=== PATIENT | female | born 1980 | race Caucasian/White ===

== ENCOUNTER 2022-02-04 03:07 | Outpatient (CLI) | payer SELFPAY ==
--- NOTE | 2022-02-04 10:00 | NS.NUTBLAN_ITS ---
Ruth was referred for nutritional counseling to address disordered eating/ eating disorder. PMH: ADHD, obesity, depression, anxiety. Meds: Vyvance, buspirone, citalopram, well butrin. Ruth describes that she had a traumatic event as a child that developed into fear of vomiting and disordered eating. She reports only being able to eat certain safe foods such as pizza, cereal, lactaid milk, monster drinks, bread, cheese, sweet tea, OJ, some fruits such as clementines, tacos and beans and rice. She also reports that she has steps or rituals that need to occur before she will eat. She has never worried about her weight or body image. In past she had IBS symptoms, celiac ruled out. Works at [employer] on weekdays and Sat/Sun. She typically sleeps 9 hours per night. Her weight is steady around 260, 5'8, BMI: 40. She reports she has never been small and gained weight on various psych meds in the past. Food Record: typically eats a big dinner and binges. Will eat entire pizza. cooks every night but she will not eat what he cooks. She reports sensory overload with typical healthy foods such as as complex carbs, lean meats, fish and vegetables. She is not worried about weight loss however, she wants to learn how to incorporate more healthful foods in her diet. She realizes that she is not meeting nutrient requirements for health. 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 In, her case, it has lead to binge eating at night that will lead to weight gain and comorbidities related to obesity. Ruth will not eat any meals, foods that require preparation or clean up. We decided to meet weekly and work on small steps to readjust/diversify her meal intake. Goal for this week is for Ruth to drink a protein shake for breakfast and lunch. This will help her avoid becoming overly hungry and binge eating at night. Follow up scheduled 02/12 at 10 am.
== END 2022-02-04 03:08 | disposition home or self-care (01) ==
PROVIDERS: PCP Nurse Practitioner Family; Visit Provider Dietitian, Registered
DX: E66.8 Other obesity; Z68.41 Body mass index [BMI] 40.0-44.9, adult; F50.82 Avoidant/restrictive food intake disorder; F50.81 Binge eating disorder; Z71.3 Dietary counseling and surveillance
CPT/HCPCS: 97802

== ENCOUNTER 2022-02-12 02:32 | Outpatient (CLI) | payer OTHER, SELFPAY | END 2022-02-12 02:33 | disposition home or self-care (01) | PROVIDERS: PCP Nurse Practitioner Family; Visit Provider Dietitian, Registered ==

== ENCOUNTER 2022-02-15 00:57 | Outpatient (CLI) | payer OTHER, SELFPAY ==
--- NOTE | 2022-02-15 11:00 | NS.NUTBLAN_ITS ---
Ruth returns for nutritional counseling for eating disorder (ARFID) with ADD. She reports that she has started to drink a protein shake at breakfast and has added some snacks during day such as string cheese and fruit. She typically eats pizza for dinner. She has noticed that she is less likely to binge at night when she eats more during day. She is happy with her progress and reports feeling like she has more energy during day and not as extremely hungry when she comes home. Session today focused on importance of making small realistic steps to help her meet her nutrient needs. Recommend daily protein shake and snacks mid day be goal for next 4 weeks. Ruth states that since starting her last medication for ADD, she is less overwhelmed with preparing meals/clean up. Once eating during day becomes more routine, she will focus on adding more variety to dinner meal. Encouraged Ruth to continue to research how ARFID (Avoidant restrictive food intake disorde) can affect life and food choices and how small changes are important in overall goal for meeting nutrient needs for optimal living. No follow up planned at this time.
== END 2022-02-15 00:58 | disposition home or self-care (01) ==
LOC: DS 00:57
PROVIDERS: PCP Nurse Practitioner Family; Visit Provider Dietitian, Registered
DX: F50.82 Avoidant/restrictive food intake disorder (principal); Z71.3 Dietary counseling and surveillance
CPT/HCPCS: 97803

== ENCOUNTER 2023-04-09 10:33 | Emergency (ER) | payer OTHER, SELFPAY ==
[2023-04-09 10:39] VITALS: BP 127/83; PULSE 97; RESP 18; TEMP 37.2; O2SAT 100
--- NOTE | 2023-04-09 10:54 | ED.GENADUL_ITS ---
Discharge Plan Disposition Patient Disposition: Home Condition: Stable Discharge Details Clinical Impression: Francisco's palsy Primary Care Provider: Kaylyn Head ED Provider: Shira Randall Home Meds and New Rx's Prescriptions: New prednisone 20 mg tablet 60 mg PO DAILY 7 Days Qty: 21 0RF Refresh Lacri-Lube 56.8-42.5 % ointment 1 applic ophthalmic (eye) QHS PRN (Reason: dry eye(s)) Qty: 7 0RF Rx Instructions: Apply to right eye nightly and tape eye shut to avoid drying No Action bupropion HCl 150 mg Tablet Sustained-Release 12 Hr 150 mg PO DAILY citalopram 40 mg Tablet 40 mg PO DAILY sumatriptan succinate [Imitrex] 50 mg Tablet 50 mg PO DIRECTED PRN buspirone 15 mg Tablet 15 mg PO BID atomoxetine 40 mg Capsule 40 mg PO DAILY Discharge Instructions Instructions: Francisco Palsy (ED) Additional Instructions: CT is within normal limits. No evidence for stroke. Please follow up with Neurology within 1 week. Use the eye ointment nightly and patch your eye closed to avoid drying of your eye. Take the prednisone 3 tablets a day for the next 7 days. Follow up with primary care provider in 3-5 days. Return to ED sooner if any worsening or concerns. Increase oral fluids. Please take Tylenol or Ibuprofen with food every 4-6 hours as needed for pain and swelling. Stand Alone Forms: Work Release Referrals: Kaylyn Head [Primary Care Provider] - 3 days Orquidea Martinez MD [ [facility] STAFF PHYSICIAN] - 5 days Discharge Data Discharge Date/Time-TO BE ENTERED AT DEPARTURE: 04/09/23 13:23 Medical Decision Making 42-year-old female presents to the ER with chief complaint of right-sided facial drooping which began this morning. Patient reports that last week she noted some tingling of her right cheek which was intermittent and feeling more clumsy. She also noted a headache which was frontal band like last week which she took some Imitrex for that it was not relieved with Imitrex. 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 She denies headache currently. She also mentions some recent heavy lifting. Work-up ordered including CBC CMP, urinalysis , CTA brain and neck. Differential diagnosis includes but not limited to CVA, Francisco's Palsy, TIA, Lyme Labs noted below and are largely WNL. CTA within normal limits. Suspect Francisco's palsy. We will give prednisone 60 mg p.o. now and daily for the next 7 days. Also prescribe Lacri-Lube eye ointment and instruct staff electrical engineer to place a patch on the eye. Lyme panel pending at this time. Discussed home care with patient and follow-up she verbalized understanding. Discussed strict return instructions. This text was generated using Cod[employer] system, please disregard any oddities of phrase or misspellings. Medical Records Medical records reviewed: Yes I reviewed the patient's medical records. Imaging Data Radiologic Study: Imaging: CT Scan Radiologist's impression: IMPRESSION: 1. Patent carotid arteries in the neck. No hemodynamically significant stenosis. 2. Patent vertebral arteries. 3. Patent intracranial arteries. 4. No evidence of intracranial hemorrhage. No ring enhancing lesions in the brain. No abnormal meningeal enhancement evident. Lab Data Lab results reviewed: Yes I reviewed the patient's lab results. Labs: Laboratory Tests Range/Units 04/09/23 04/09/23 04/09/23 11:00 11:00 11:07 WBC (4.4-10.8) 10^3/uL 6.61 RBC (3.93-5.22) 10^6/uL 5.15 Hgb (11.2-15.7) g/dL 14.3 Hct (36.0-46.0) % 42.2 MCV (80-95) fL 82 MCH (27.0-33.0) pg 27.8 MCHC (32.0-36.0) % 33.9 RDW (11.7-14.6) % 12.8 Plt Count (130-400) 10^3/uL 394 MPV (8.0-11.0) fL 8.2 Immature Gran % 0.2 Neutrophils % 58.0 Lymphocytes % 32.2 Monocytes % 6.1 Eosinophils % 2.6 Basophils % 0.9 Nucleated RBC % (0.0-0.3) % 0.0 Absolute Neutrophils (1.2-6.7) 10^3/uL 3.84 Absolute Lymphocytes (1.2-3.4) 10^3/uL 2.13 Absolute Monocytes (0.1-0.8) 10^3/uL 0.40 Absolute Eosinophils (0.0-0.7) 10^3/uL 0.17 Absolute Basophils (0.0-0.2) 10^3/uL 0.06 Sodium (136-145) mmol/L 139 Potassium (3.5-5.1) mmol/L 3.6 Chloride (98-107) mmol/L 105 Carbon Dioxide (21.0-32.0) mmol/L 26.5 Anion Gap (3-11) mmol/L 7.5 BUN (7-18) mg/dL 9 Creatinine (0.55-1.02) mg/dL 0.8 Est GFR (CKD-EPI 2020) (mL/min/1.73m2) 95.46 Glucose (74-106) mg/dL 105 Calcium (8.5-10.1) mg/dL 8.3 L Magnesium (1.8-2.4) mg/dL 2.0 Total Bilirubin (0.2-1.0) mg/dL 0.3 AST (15-37) U/L 21 ALT (14-59) U/L 34 Alkaline Phosphatase (46-116) U/L 109 Total Protein (6.4-8.2) g/dL 7.4 Albumin (3.4-5.0) g/dL 3.7 Urine Color (Yellow) Yellow Urine Clarity (Clear) Clear Urine pH (5-8) 7.0 Ur Specific [place] (1.005-1.025) 1.015 Urine Protein (Negative) mg/dL Negative Urine Ketones (Negative) mg/dL Negative Urine Blood (Negative) Negative Urine Nitrite (Negative) Negative Urine Bilirubin (Negative) Negative Urine Urobilinogen (Up to 0.2) mg/dL 0.2 Ur Leukocyte Esterase (Negative) Negative Urine Glucose (Negative) mg/dL Negative HPI General Mode of arrival: ambulatory . Date/Time Provider Initiated Documentation: 04/09/23 10:38 . Limitations to Documentation: no limitations . Information obtained by: patient, RN notes reviewed and old records reviewed . HPI Narrative: 42-year-old female presents to the ER with chief complaint of right-sided facial drooping which began this morning. Patient reports that last week she noted some tingling of her right cheek which was intermittent and feeling more clumsy. She also noted a headache which was frontal band like last week which she took some Imitrex for that it was not relieved with Imitrex. The forehead is not involved she does have right-sided cheek mouth drooping meter maintenance person are equal clover aterally no pronator drift she is alert and oriented x4. She denies headache currently. She also mentions some recent heavy lifting. Related Data Home Medications Medication Instructions Recorded Confirmed atomoxetine 40 mg capsule 40 mg PO DAILY 04/09/23 04/09/23 bupropion HCl 150 mg tablet,12 hr 150 mg PO DAILY 04/09/23 04/09/23 sustained-release buspirone 15 mg tablet 15 mg PO BID 04/09/23 04/09/23 citalopram 40 mg tablet 40 mg PO DAILY 04/09/23 04/09/23 prednisone 20 mg tablet 60 mg PO DAILY 7 days #21 tabs 04/09/23 sumatriptan succinate 50 mg tablet 50 mg PO DIRECTED PRN 04/09/23 04/09/23 (Imitrex) white petrolatum-mineral oil 56.8 1 applic ophthalmic (eye) QHS PRN 04/09/23 %-42.5 % eye ointment (Refresh dry eye(s) #7 grams Lacri-Lube) Previous Rx's Medication Instructions Recorded prednisone 20 mg tablet 60 mg PO DAILY 7 days #21 tabs 04/09/23 white petrolatum-mineral oil 56.8 1 applic ophthalmic (eye) QHS PRN 04/09/23 %-42.5 % eye ointment (Refresh dry eye(s) #7 grams Lacri-Lube) Allergies Allergy/AdvReac Type Severity Reaction Status Date / Time No Known Allergies Allergy Unverified 04/09/23 10:43 General Stated Complaint: CVA/TIA BRENDA: 3 Review of Systems All systems reviewed & are unremarkable except as noted in HPI and below Neurologic Neurologic: Reports as per HPI and Reports localized weakness PFSH All Active Problems (Updated 04/09/23 @ 12:50 by Shira Randall NP) Francisco's palsy (Acute) Social History Smoking/Tobacco Use Status: Never Smoking risk assessment performed?: Yes Alcohol Intake: never Drug use: Never Substance use type: does not use Exam Narrative Exam Narrative: Constitutional: Alert and oriented x3. Appears stated age. Normal body habitus. Head: Normocephalic, no trauma. Eyes: Pupils PERRL, Red reflex noted, EOM's intact. Eyelids symmetrical without lesions, discharge, or swelling. ENT: Bilateral TM's WNL, External ear normal to inspection, no mastoid TTP, swelling, or erythema, Nasal turbinates WNL, no nasal discharge. Normal dentition, Posterior pharynx WNL, no exudate. Chest: RRR, Normal S1, S2, distal pulses intact. Resp: Lungs clear to auscultation bilaterally, no wheezes, rales, or rhonchi. Abdomen: Soft, non-distended, Normoactive bowel sounds all 4 quads. Musculoskeletal: Normal gait, 5/5 strength to all four extremities. Skin: No suspicious rashes or lesions. Capillary refill less than 2 sec. Neurologic: Alert and oriented x3, she does have right-sided facial droop, forehead is spared. Die Set Up Worker are equal bilaterally equal shrug, no pronator drift, dorsal flexion and extension intact bilaterally. No leg drop. Hematologic/Lymphatic: No ecchymosis, no lymphadenopathy. Course Vital Signs Vital signs: Vital Signs Temperature 37.2 C 04/09/23 10:39 Pulse 97 H 04/09/23 10:39 Respiratory Rate 18 04/09/23 10:39 Blood Pressure 127/83 04/09/23 10:39 Pulse Oximetry 100 04/09/23 10:39 Temperature 37.2 C 04/09/23 10:39 Temperature Source Temporal Artery Scan 04/09/23 10:39 Pulse 97 H 04/09/23 10:39 Respiratory Rate 18 04/09/23 10:39 Blood Pressure 127/83 04/09/23 10:39 Blood Pressure Position Sitting 04/09/23 10:39 Pulse Oximetry 100 04/09/23 10:39 Oxygen Delivery Method Room Air 04/09/23 10:39 Oxygen Flow Rate 0 04/09/23 10:39 Pain Level 0 04/09/23 10:39
[2023-04-09] MEDS: Omnipaque 350 MG/ML 500 ML BTL-Imaging package IJ (11:12)
[2023-04-09] MEDS: Normal Saline - Diluent 50 ML VIAL IJ (11:13)
[2023-04-09 11:14] VITALS: RESP 16
[2023-04-09 11:22] LABS: Abs Immature Grans 0.01 10^3/uL (0.0-0.06); Absolute Basophil Count 0.06 10^3/uL (0.0-0.2); Absolute Eosinophil Count 0.17 10^3/uL (0.0-0.7); Absolute Lymphocyte Count 2.13 10^3/uL (1.2-3.4); Absolute Neutrophil Count 3.84 10^3/uL (1.2-6.7); Basophils % 0.9; Eosinophils % 2.6; HCT 42.2 % (36.0-46.0); HGB 14.3 g/dL (11.2-15.7); Immature Grans % 0.2; Lymphocytes % 32.2; MCH 27.8 pg (27.0-33.0); MCHC 33.9 % (32.0-36.0); MCV 82 fL (80-95); MPV 8.2 fL (8.0-11.0); Monocytes % 6.1; Platelet Count 394 10^3/uL (130-400); RBC 5.15 10^6/uL (3.93-5.22); RDW 12.8 % (11.7-14.6); RDW-SD 38.2 fL; WBC 6.61 10^3/uL (4.4-10.8)
[2023-04-09 11:24] LABS: Bilirubin Negative (Negative); Blood Negative (Negative); Clarity Clear (Clear); Glucose Negative (Negative); Ketones Negative (Negative); Leukocyte Esterase Negative (Negative); Nitrite Negative (Negative); Specific Gravity 1.015 (1.005-1.025); Urobilinogen 0.2 mg/dL (Up to 0.2)
[2023-04-09 11:41] LABS: ALT 34 U/L (14-59); AST 21 U/L (15-37); Albumin 3.7 g/dL (3.4-5.0); Alkaline Phosphatase 109 U/L (46-116); Anion Gap 7.5 mmol/L (3-11); BUN 9 mg/dL (7-18); Bilirubin, Total 0.3 mg/dL (0.2-1.0); CO2 26.5 mmol/L (21.0-32.0); CREATININE 0.8 mg/dL (0.55-1.02); Calcium 8.3 mg/dL (8.5-10.1); Chloride 105 mmol/L (98-107); Estimated GFR 95.46 (mL/min/1.73m2); Glucose 105 mg/dL (74-106); Potassium 3.6 mmol/L (3.5-5.1); Sodium 139 mmol/L (136-145); Total Protein 7.4 g/dL (6.4-8.2)
--- NOTE | 2023-04-09 11:55 | DI.CT_ITS ---
Exam(s) CT BRAIN NECK CTA EXAM: CT BRAIN NECK CTA CLINICAL HISTORY: Right side facial droop. TECHNIQUE: Imaging Protocol: Axial CT angiography was performed with multi-slice acquisition and mu lti-planar and/or 3D reconstructions. CONTRAST MATERIAL: Intravenous: Omnipaque 350 Contrast volume:structured data in ml COMPARISON: No exams were available for comparison FINDINGS: CTA Neck W: Aortic arch anatomy: The aortic arch anatomy is conventional and there is no significant stenosis at the origin of the great vessels off of the aortic arch. No intimal flap evident. Anterior circulation: Both common carotid arteries ascend with normal luminal diameters. At the level the carotid bulbs and proximal internal carotid arteries there is no significant plaque without hemodynamically significant stenosis evident. Internal carotid arteries are nicely patent in the upper neck and skull base-carotid canals. Posterior circulation: Both vertebral arteries originate in conventional fashion off of the subclavian arteries and there is no obvious stenosis at the origin of the vertebral arteries. The left vertebral artery is dominant. No intraluminal thrombus nor dissection of the vertebral velasquez juan manuel. At the skull base the left vertebral artery is the main contributor to the formation of the basilar a rtery. CTA Brain W: Anterior circulation: Both internal carotid arteries are patent in the skull base-carotid canals as well as within the cave rnous sinuses. The supraclinoid aspects of the ICAs are patent. Both A1 segments are patent with the left A1 segmen t being dominant. The anterior cerebral arteries and there is no evidence of aneurysm at the level o f the anterior communicating artery. Both middle cerebral arteries are patent with no evidence of significant stenosis nor intraluminal th rombus. There also no aneurysms of these vessels. Posterior circulation: The thin basilar artery ascends in the midline. Distally it gives off superior cerebellar arteries Above this level the basilar artery terminates as patent left posterior cerebral artery. The right p osterior cerebral artery is fed by posterior communicating artery on the right side of the [place]. There is no evidence of aneurysm at the tip of the basilar artery nor elsewhere in the [id number] is. CT BRAIN: There is no evidence of intracranial hemorrhage, mass effect, or shift of midline structures. There are no extra-axial fluid collections. Ventricles are not enlarged or shifted. There are no ring enh ancing lesions in the brain and no abnormal meningeal enhancement. Incidentally noted is a retention cyst in the anterior wall the left maxillary sinus, without associa lamar fluid level. IMPRESSION: 1. Patent carotid arteries in the neck. No hemodynamically significant stenosis. 2. Patent vertebral arteries. 3. Patent intracranial arteries. 4. No evidence of intracranial hemorrhage. No ring enhancing lesions in the brain. No abnormal meni ngeal enhancement evident. If clinically indicated follow-up MRI with diffusion imaging can be performed. Called by myself to ER provider. RADIATION DOSE DELIVERED: 2,260.98mGy.cm Total DLP DATA REPOSITORY: All CT scans at this facility are submitted to the National Radiology Data Registry (NRDR) Dose Index Registry (DIR) with the [employer] (ACR). RADIATION OPTIMIZATION: All CT scans at this facility use at least one of these dose optimization te chniques: automated exposure control; mA and/or kV adjustment per patient size (includes targeted exa ms where dose is matched to clinical indication); or iterative reconstruction.
[2023-04-09] MEDS: predniSONE 20 MG TAB 60 MG PO (12:50)
--- NOTE | 2023-04-09 12:56 | NUR.NOTE ---
Nursing Note: PT needs follow up in one week withj Neurology for [place] Palsy. Marzena, ED
[2023-04-10 11:28] LABS: Lyme Ab w Rflx to Lyme Confirm Positive (Negative)
[2023-04-10 16:27] LABS: Lyme IgG Ab Positive (Negative); Lyme IgM Ab Positive (Negative)
[2023-04-15 13:49] LABS: Anaplasma phagocytophilum Negative (Negative); B. miyamotoi PCR Negative (Negative); Babesia divergens/MO-1 Negative (Negative); Babesia duncani Negative (Negative); Babesia microti Negative (Negative); Ehrlichia chaffeensis Negative (Negative); Ehrlichia ewingii/canis Negative (Negative); Ehrlichia muris eauclairensis Negative (Negative)
== END 2023-04-09 13:23 | disposition home or self-care (01) ==
PROVIDERS: Emergency Provider Registered Nurse Emergency; PCP Nurse Practitioner Family
DX: G51.0 Bell's palsy (principal)
CPT/HCPCS: 36415; 70496; 70498; 80053; 81025; 86617; 87798; 99285; 81003; 83735; 85025; 86618; 99284; J7512

== ENCOUNTER 2024-07-20 13:41 | Outpatient (REF) | payer OTHER, SELFPAY ==
[2024-07-20 19:17] LABS: Abs Immature Grans 0.02 10^3/uL (0.0-0.06); Absolute Basophil Count 0.08 10^3/uL (0.0-0.2); Absolute Eosinophil Count 0.27 10^3/uL (0.0-0.7); Absolute Lymphocyte Count 2.49 10^3/uL (1.2-3.4); Absolute Monocyte Count 0.65 10^3/uL (0.1-0.8); Absolute Neutrophil Count 4.06 10^3/uL (1.2-6.7); Basophils % 1.1 %; Eosinophils % 3.6 %; HCT 42.1 % (36.0-46.0); HGB 14.4 g/dL (11.2-15.7); Immature Grans % 0.3 %; Lymphocytes % 32.9 %; MCH 28.4 pg (27.0-33.0); MCHC 34.2 % (32.0-36.0); MCV 83 fL (80-95); MPV 8.5 fL (8.0-11.0); Monocytes % 8.6 %; Neutrophils % 53.5 %; Platelet Count 422 10^3/uL (130-400); RBC 5.07 10^6/uL (3.93-5.22); RDW 13.3 % (11.7-14.6); RDW-SD 39.6 fL; WBC 7.57 10^3/uL (4.4-10.8)
[2024-07-20 19:41] LABS: ALT 21 U/L (14-59); AST 26 U/L (15-37); Albumin 3.5 g/dL (3.4-5.0); Alkaline Phosphatase 101 U/L (46-116); Anion Gap 10.4 mmol/L (3-11); BUN 10 mg/dL (7-18); Bilirubin, Total 0.38 mg/dL (0.2-1.0); CO2 21.6 mmol/L (21.0-32.0); CREATININE 0.9 mg/dL (0.55-1.02); Calcium 8.7 mg/dL (8.5-10.1); Chloride 105 mmol/L (98-107); Estimated GFR 82.37 (mL/min/1.73m2); Glucose 72 mg/dL (74-106); Potassium 4.2 mmol/L (3.5-5.1); Sodium 137 mmol/L (136-145); TSH (W/Ref FT4) 1.93 uIU/mL (0.36-3.74); Total Protein 7.3 g/dL (6.4-8.2)
[2024-07-20 20:32] LABS: Hemoglobin A1C 5.1 % (<5.7)
== END 2024-07-20 13:42 | disposition home or self-care (01) ==
LOC: NCHCN 13:41
PROVIDERS: PCP Nurse Practitioner Family; Visit Provider Nurse Practitioner Family
DX: F32.A Depression, unspecified (principal); Z68.37 Body mass index [BMI] 37.0-37.9, adult; E66.9 Obesity, unspecified
CPT/HCPCS: 80053; 83036; 84443; 85025

== ENCOUNTER 2025-09-01 09:49 | Outpatient (REF) | payer BC, SELFPAY ==
[2025-09-01 15:30] LABS: Abs Immature Grans 0.02 10^3/uL (0.0-0.06); HCT 41.7 % (36.0-46.0); HGB 13.8 g/dL (11.2-15.7); Immature Grans % 0.3 %; MCH 26.7 pg (27.0-33.0); MCHC 33.1 % (32.0-36.0); MCV 81 fL (80-95); MPV 8.8 fL (8.0-11.0); Platelet Count 415 10^3/uL (130-400); RBC 5.16 10^6/uL (3.93-5.22); RDW 13.0 % (11.7-14.6); RDW-SD 37.9 fL; WBC 7.44 10^3/uL (4.4-10.8)
[2025-09-01 16:12] LABS: ALT 24 U/L (14-59); AST 11 U/L (15-37); Albumin 3.7 g/dL (3.4-5.0); Alkaline Phosphatase 125 U/L (46-116); Anion Gap 10.5 mmol/L (3-11); BUN 11 mg/dL (7-18); Bilirubin, Total 0.4 mg/dL (0.2-1.0); CO2 24.5 mmol/L (21.0-32.0); Calcium 8.5 mg/dL (8.5-10.1); Chloride 105 mmol/L (98-107); Cholesterol 177 mg/dL (<200); Glucose 89 mg/dL (74-106); HDL Cholesterol 33 mg/dL (>or=50); Potassium 3.9 mmol/L (3.5-5.1); Sodium 140 mmol/L (136-145); TSH (W/Ref FT4) 1.74 uIU/mL (0.36-3.74); Total Protein 7.0 g/dL (6.4-8.2)
[2025-09-01 16:28] LABS: Hemoglobin A1C 5.1 % (<5.7)
== END 2025-09-01 09:50 | disposition home or self-care (01) ==
LOC: NCHCN 09:49
PROVIDERS: PCP Nurse Practitioner Family
DX: Z00.00 Encounter for general adult medical examination without abnormal findings (principal); E66.01 Morbid (severe) obesity due to excess calories
CPT/HCPCS: 80053; 80061; 83036; 84443; 85025

== ENCOUNTER → 2025-09-16 02:45 | Outpatient (CLI) | payer BC, SELFPAY ==
--- NOTE | 2025-09-16 07:45 | DI.MAMMO_ITS ---
Exam(s) MAMMO SCREENING EXAM: MAMMO SCREENING CLINICAL HISTORY: SCREENING, Z12.31 TECHNIQUE: Mammograms were interpreted according to the usual protocol including computer analysis with CAD system, tomosynthesis and C-view imaging. COMPARISON: No exams were available for comparison. Baseline examination FINDINGS: The breasts are composed of scattered fibroglandular densities, Breast Density category B. No suspicious masses or suspicious microcalcifications are seen. No skin thickening or abnormal axillary lymph nodes are seen. IMPRESSION: BI-RADS Category 1, Negative mammogram Yearly screening mammography is recommended. Breast Density - Category B - There are scattered areas of fibroglandular density. Breast density Category C or D implies that the patient has dense breast tissue. Dense breast tissue can make it harder to find cancer on a mammogram. Dense breast tissue is also associated with an increased risk of breast cancer. This information about the result of the mammogram report was provided to the patient to raise their awareness. Use this report when you speak with the patient about their risks for breast cancer, which includes their family history. At that time, you may recommend additional screening tests (Ultrasound or MRI) as these tests may add significant information. A negative radiographic report should not delay biopsy if a dominant or clinically suspicious mass is present. Up to ten percent of cancers are not identified on mammography. A negative report may reinforce clinical impression. Adenosis and dense breasts may obscure an underlying neoplasm. False positive reports average 6 to 10%. Patient will receive a letter notifying them of these results.
== END ==
PROVIDERS: PCP Nurse Practitioner Family
DX: Z12.31 Encounter for screening mammogram for malignant neoplasm of breast (principal); R92.323 Mammographic fibroglandular density, bilateral breasts
CPT/HCPCS: 77063; 77067